=== PATIENT | female | born 1970 ===

== ENCOUNTER 2017-05-23 08:53 | Day surgery (SDC) | payer BC ==
[2017-05-22 09:58] LABS: CHLORIDE,CL 105 mmol/L (98-110); SODIUM,NA 136 mmol/L (136-146)
[~2017-05-23 08:53] MED LIST: Fluorescein 5 ML Vial ONE; Octyl 2-Cyanoacrylate 1 Tube ONE; Sodium Chloride 0.9% 10 ML Syringe FLUSH PRN; Sodium Chloride 0.9% 2.5 ML Syringe FLUSH PRN; ceFAZolin 2 GM in Premix Bag 1 BAG IV ONE
[2017-05-23] MEDS: Lactated Ringers 1,000 ML IV SCH ×3 (09:27→23:37)
[2017-05-23] MEDS ORDERED: Scopolamine 1.5 MG Transdermal Patch TRDERM PRN (10:01)
--- NOTE | 2017-05-23 10:02 | PCM.PREANE ---
Preanesthetic Assessment - Anesthesia/Transfusion/Family Hx Anesthesia History: Prior Anesthesia Without Reaction Family History of Anesthesia Reaction: No Transfusion History: No Prior Transfusion(s) - Review of Systems General: No Symptoms Pulmonary: No Symptoms Cardiovascular: No Symptoms Gastrointestinal: No Symptoms Neurological: No Symptoms Other: Reports: None - Physical Assessment NPO Status Date: 05/22/17 NPO Status Time: 21:00 O2 Sat by Pulse Oximetry: 99 Respiratory Rate: 18 Vital Signs: Last Vital Signs Temp 36.4 C 05/23/17 09:20 Pulse 99 05/23/17 09:20 Resp 18 05/23/17 09:20 BP 139/86 05/23/17 09:20 Pulse Ox 99 05/23/17 09:20 Height: 1.7 m Weight: 107.048 kg ASA Class: 1 Mental Status: Alert & Oriented x3 Dentition: Reports: Normal Dentition ROM/Head Extension: Full Lungs: Clear to Auscultation, Normal Respiratory Effort Cardiovascular: Regular Rate, Regular Rhythm - Lab Values: Laboratory Last Values WBC 8.38 K/uL (4.0-11.0) 05/22/17 09:25 RBC 4.59 M/uL (4.30-5.90) 05/22/17 09:25 Hgb 13.8 g/dL (12.0-16.0) 05/22/17 09:25 Hct 40.9 % (36.0-46.0) 05/22/17 09:25 MCV 89.1 fL (80.0-98.0) 05/22/17 09:25 MCH 30.1 pg (27.0-32.0) 05/22/17 09:25 MCHC 33.7 g/dL (31.0-37.0) 05/22/17 09:25 RDW Std Deviation 44.7 fl (28.0-62.0) 05/22/17 09:25 RDW Coeff of June 14 % (11.0-15.0) 05/22/17 09:25 Plt Count 170 K/uL (150-400) 05/22/17 09:25 MPV 11.80 fL (7.40-12.00) 05/22/17 09:25 Nucleated RBC % 0.0 /100WBC 05/22/17 09:25 Nucleated RBCs # 0 K/uL 05/22/17 09:25 Sodium 136 mmol/L (136-146) 05/22/17 09:25 Potassium 4.4 mmol/L (3.5-5.1) 05/22/17 09:25 Chloride 105 mmol/L (98-110) 05/22/17 09:25 Carbon Dioxide 25 mmol/L (21-31) 05/22/17 09:25 BUN 11 mg/dL (6.0-23.0) 05/22/17 09:25 Creatinine 0.8 mg/dL (0.6-1.5) 05/22/17 09:25 Est Cr Clr Drug Dosing 86.36 mL/min 05/22/17 09:25 Estimated GFR (MDRD) > 60.0 ml/min 05/22/17 09:25 Glucose 115 mg/dL (60-110) H 05/22/17 09:25 Calcium 9.3 mg/dL (8.8-10.8) 05/22/17 09:25 HCG, Qual NEGATIVE (NEG) 05/22/17 09:25 Blood Type A POSITIVE 05/22/17 09:25 Antibody Screen NEGATIVE 05/22/17 09:25 - Allergies Allergies/Adverse Reactions: Allergies Allergy/AdvReac Type Severity Reaction Status Date / Time ciprofloxacin Allergy lips swell Verified 05/20/17 12:47 - Anesthesia Plan Pre-Op Medication Ordered: Other (scop) - Acknowledgements Anesthesia Type Planned: General Anesthesia Pt an Appropriate Candidate for the Planned Anesthesia: Yes Alternatives and Risks of Anesthesia Discussed w Pt/Guardian: Yes Pt/Guardian Understands and Agrees with Anesthesia Plan: Yes PreAnesthesia Questionnaire HEENT History: Reports: Other (See Below) Other HEENT History: wears glasses Genitourinary History: Reports: None RESEARCH DIRECTOR History: Reports: Dysfunctional Uterine Bleeding, Psychiatric History: Reports: Anxiety, Depression Endocrine/Metabolic History: Reports: Obesity/BMI 30+ - Past Surgical History Head Surgeries/Procedures: Reports: None Female Surgical History: Reports: Tubal Ligation Other Female Surgeries/Procedures: endometrial bx - SUBSTANCE USE Smoking Status *Q: Never Smoker Recreational Drug Use History: No - HOME MEDS Home Medications: Home Meds Venlafaxine HCl [Venlafaxine HCl ER] 150 mg PO DAILY 05/20/17 [History] - CURRENT (IN HOUSE) MEDS Current Meds: Current Medications Lactated Ringer's (Ringers, Lactated) 1,000 mls @ 125 mls/hr IV ASDIRECTED [facility] Last Admin: 05/23/17 09:27 Dose: 125 mls/hr Scopolamine (Transderm-Scop) 1.5 mg TRDERM Q72H PRN PRN Reason: Nausea/Vomiting Sodium Chloride (Saline Flush) 10 ml FLUSH ASDIRECTED PRN PRN Reason: Keep Vein Open Sodium Chloride (Saline Flush) 2.5 ml FLUSH ASDIRECTED PRN PRN Reason: Keep Vein Open Discontinued Medications Fluorescein Sodium (Ak-Fluor) Confirm Administered Dose 5 ml .ROUTE .STK-MED ONE Stop: 05/23/17 07:27 Cefazolin Sodium/Dextrose 2 gm (/ Premix) 50 mls @ 100 mls/hr IV ONETIME ONE Stop: 05/22/17 08:56 Octyl Cyanoacrylate (Dermabond Advance) Confirm Administered Dose 1 applic .ROUTE .STK-MED ONE Stop: 05/23/17 07:27
[2017-05-23] MEDS ORDERED: fentaNYL 100 MCG/2 ML SDV ONE ×2 (11:16→13:48)
[2017-05-23] MEDS ORDERED: Lidocaine 2% 5 ML SDV ONE (11:16)
[2017-05-23] MEDS ORDERED: Propofol 200 MG/20 ML SDV ONE (11:16)
[2017-05-23] MEDS ORDERED: Neostigmine Methylsulfate 1 MG/ML 5 ML Syringe ONE (11:17)
[2017-05-23] MEDS ORDERED: Rocuronium 10 MG/ML 10 ML Syringe ONE (11:17)
[2017-05-23] MEDS ORDERED: Ketorolac 30 MG/ML SDV ONE (11:17)
[2017-05-23] MEDS ORDERED: Ondansetron 4 MG/2 ML SDV ONE (11:17)
[2017-05-23] MEDS ORDERED: Midazolam 1 MG/ML 2 ML SDV ONE (11:17)
[2017-05-23] MEDS ORDERED: HYDROmorphone 2 MG/ML Syringe ONE (11:31)
[2017-05-23] MEDS ORDERED: Furosemide 40 MG/4 ML VIAL ONE (13:47)
[2017-05-23] MEDS ORDERED: Labetalol 100 MG/20 ML MDV ONE (13:53)
[2017-05-23] MEDS ORDERED: ePHEDrine 50 MG/ML SDV ONE (14:08)
[2017-05-23] MEDS ORDERED: Ondansetron 4 MG/2 ML SDV IVPUSH PRN (14:17)
[2017-05-23] MEDS ORDERED: Morphine 4 MG/ML Syringe IVPUSH PRN (14:17)
[2017-05-23] MEDS ORDERED: Ketorolac 30 MG/ML SDV IVPUSH PRN (14:17)
[2017-05-23] MEDS ORDERED: Promethazine 25 MG/ML SDV IM PRN (14:17)
[2017-05-23] MEDS ORDERED: Morphine 2 MG/ML Syringe IVPUSH PRN (14:17)
[2017-05-23] MEDS ORDERED: Acetaminophen/oxyCODONE 325-5 MG Tab PO PRN ×2 (14:17)
[2017-05-23] MEDS ORDERED: Ketorolac 30 MG/ML SDV IVPUSH ONE (14:17)
--- NOTE | 2017-05-23 14:21 | PCM.OPNOTE ---
- General Post-Op/Procedure Note Date of Surgery/Procedure: 05/23/17 Operative Procedure(s): TV[facility] Cystoscopy Pre Op Diagnosis: Bleeding Post-Op Diagnosis: Same Anesthesia Technique: General ET Tube Primary Surgeon: Harjinder Richey Structural Iron Erector: Elo Vasquez EBL in mLs: 75 Complications: None Condition: Good Free Text/Narrative:: Intake & Output 05/22/17 05/23/17 05/23/17 22:59 06:59 14:59 Output Total 50 Balance -50
[2017-05-23] MEDS ORDERED: fentaNYL 100 MCG/2 ML SDV IVPUSH PRN (14:36)
[2017-05-23] MEDS ORDERED: HYDROmorphone 2 MG/ML Syringe IVPUSH ONE (14:36)
--- NOTE | 2017-05-23 15:04 | PCM.POSTAN ---
POST ANESTHESIA ASSESSMENT - MENTAL STATUS Mental Status: Alert, Oriented - RESPIRATORY Respiratory Status: Respiratory Rate WNL, Airway Patent, O2 Saturation Stable - CARDIOVASCULAR CV Status: Pulse Rate WNL, Blood Pressure Stable - GASTROINTESTINAL GI Status: No Symptoms - POST OP HYDRATION Hydration Status: Adequate & Stable
--- NOTE | 2017-05-24 02:42 | OR ---
SURGEON: Harjinder Richey MD DATE OF PROCEDURE: PREOPERATIVE DIAGNOSIS: Menometrorrhagia. POSTOPERATIVE DIAGNOSIS: Menometrorrhagia. OPERATION PERFORMED: Total vaginal hysterectomy, vaginal bilateral salpingectomy, preserving both ovary and cystoscopy. TAXI PROPRIETOR: Dr. Elo Vasquez. ANESTHESIA: General endotracheal intubation, Vance Dukes and Dr. Matthews. ESTIMATED BLOOD LOSS: 75 mL. COMPLICATIONS: None. FINDINGS: Uterus about 8 week size. Both ovaries are essentially is normal. INDICATION FOR SURGERY: Seney refer to the admit note. PROCEDURE IN DETAIL: The patient was brought to the OR, properly identified and after adequate level of anesthesia, the patient was placed in lithotomy position, prepped and draped in sterile fashion as usual. A short weighted speculum was placed in the vagina and straight catheter was used to empty the bladder and then single-tooth tenaculum was applied to the cervix and using electrocautery, a circular incision in the vaginal mucosa around the cervix was done. The posterior cul-de- sac was entered with the Ledbetter scissors and the vagina and the posterior vaginal wall was tagged with 2-0 and held for further identification. The short- weighted speculum replaced with an extended long-weighted speculum. Then, the uterosacral ligament identified from both sides, clamped with curved Zeppelin, transected, and suture ligated with 2-0 Vicryl in a Tia fashion and held for further identification. The same thing was done with the cardinal ligament and then the cervicovesical space was entered anteriorly and the bladder retracted completely away from the operative field. The broad ligament was clamped with a curved Zeppelin, transected, and suture ligated with 2-0 Vicryl pop-off. The uterine vessel suture ligated at this step. The round ligament on both sides top of the curved Zeppelin, transected, and suture ligated with 2-0 Vicryl pop- off. The uterus was delivered posteriorly and 90-degree Zeppelin was applied to the superior pedicle on both sides and the uterus was removed. The superior pedicle tied twice with a free tie on both sides and held for further identification. Attention was paid to the tubes and 90-degree clamp was applied to the mesosalpinx on both sides and the tubes removed and the mesosalpinx was tied with a free tie of 3-0 Vicryl. Inspection of the operative field shows no oozing, no bleeding. The uterosacral ligament and cardinal ligament anchored to the vagina at 3 and 9 o'clock for added vaginal support and the vaginal cuff was closed with 2-0 Vicryl interrupted [id number] suture. While we were doing that, we asked the anesthesiologist to give the patient fluorescein and after closing the vagina, cystoscopy was performed. The bladder was intact. Both ureteric orifices were seen with the dye coming from both of them. The patency of both ureters verified, satisfied with these finding. The procedure was ended. Instrument and sponge count was correct x2. The patient tolerated the procedure well, went to recovery room in stable general condition. JOSE LUIS / LAMINE /[id number]
[2017-05-24 05:54] LABS: CHLORIDE,CL 100 mmol/L (98-110); SODIUM,NA 132 mmol/L (136-146)
--- NOTE | 2017-05-24 09:44 | PCM.SURGPN ---
- General Info Date of Service: 05/24/17 Functional Status: Reports: Pain Controlled - Review of Systems General: Reports: No Symptoms HEENT: Reports: No Symptoms Pulmonary: Reports: No Symptoms Cardiovascular: Reports: No Symptoms Gastrointestinal: Reports: No Symptoms Genitourinary: Reports: No Symptoms Musculoskeletal: Reports: No Symptoms Skin: Reports: No Symptoms Neurological: Reports: No Symptoms Psychiatric: Reports: No Symptoms - Patient Data Vitals - Most Recent: Last Vital Signs Temp 36.7 C 05/24/17 08:38 Pulse 74 05/24/17 08:38 Resp 22 H 05/24/17 08:38 BP 143/77 H 05/24/17 08:38 Pulse Ox 98 05/24/17 08:38 Weight - Most Recent: 107.048 kg I&O - Last 24 Hours: Intake & Output 05/23/17 05/24/17 05/24/17 22:59 06:59 14:59 Intake Total 1800 2404 Output Total 375 2000 Balance 1425 404 Lab Results Last 24 Hrs: Laboratory Results - last 24 hr 05/24/17 05/24/17 Range/Units 04:54 04:54 WBC 19.23 H (4.0-11.0) K/uL RBC 4.14 L (4.30-5.90) M/uL Hgb 12.5 (12.0-16.0) g/dL Hct 36.6 (36.0-46.0) % MCV 88.4 (80.0-98.0) fL MCH 30.2 (27.0-32.0) pg MCHC 34.2 (31.0-37.0) g/dL RDW Std Deviation 43.2 (28.0-62.0) fl RDW Coeff of June 13 (11.0-15.0) % Plt Count 155 (150-400) K/uL MPV 12.00 (7.40-12.00) fL Neut % (Auto) 88.2 H (48.0-80.0) % Lymph % (Auto) 6.4 L (16.0-40.0) % [place] % (Auto) 5.4 (0.0-15.0) % Eos % (Auto) 0.0 (0.0-7.0) % Baso % (Auto) 0.0 (0.0-1.5) % Neut # (Auto) 17.0 H (1.4-5.7) K/uL Lymph # (Auto) 1.2 (0.6-2.4) K/uL [place] # (Auto) 1.0 H (0.0-0.8) K/uL Eos # (Auto) 0.0 (0.0-0.7) K/uL Baso # (Auto) 0.0 (0.0-0.1) K/uL Nucleated RBC % 0.0 /100WBC Nucleated RBCs # 0 K/uL Sodium 132 L (136-146) mmol/L Potassium 3.8 (3.5-5.1) mmol/L Chloride 100 (98-110) mmol/L Carbon Dioxide 23 (21-31) mmol/L BUN 7 (6.0-23.0) mg/dL Creatinine 0.7 (0.6-1.5) mg/dL Est Cr Clr Drug Dosing 98.69 mL/min Estimated GFR (MDRD) > 60.0 ml/min Glucose 129 H (60-110) mg/dL Calcium 8.5 L (8.8-10.8) mg/dL Med Orders - Current: Current Medications Fentanyl (Sublimaze) 50 mcg IVPUSH Q5M PRN PRN Reason: Pain (severe 7-10) Stop: 05/24/17 14:36 Lactated Ringer's (Ringers, Lactated) 1,000 mls @ 125 mls/hr IV ASDIRECTED [facility] Last Admin: 05/23/17 23:37 Dose: 125 mls/hr Ketorolac Tromethamine (Toradol) 30 mg IVPUSH Q6H PRN PRN Reason: Pain (severe 7-10) Stop: 05/28/17 14:17 Last Admin: 05/23/17 20:23 Dose: 30 mg Morphine Sulfate (Morphine) 2 mg IVPUSH Q2H PRN PRN Reason: Pain (severe 7-10) Last Admin: 05/23/17 18:33 Dose: 2 mg Morphine Sulfate (Morphine) 4 mg IVPUSH Q2H PRN PRN Reason: Pain (severe 7-10) Ondansetron HCl (Zofran) 4 mg IVPUSH Q6H PRN PRN Reason: Nausea/Vomiting Last Admin: 05/23/17 17:15 Dose: 4 mg Oxycodone/Acetaminophen (Percocet 325-5 Mg) 1 tab PO Q4H PRN PRN Reason: Pain (moderate 4-6) Last Admin: 05/23/17 17:15 Dose: 1 tab Oxycodone/Acetaminophen (Percocet 325-5 Mg) 2 tab PO Q4H PRN PRN Reason: Pain (moderate 4-6) Promethazine HCl (Phenergan) 25 mg IM Q6H PRN PRN Reason: Nausea/Vomiting Last Admin: 05/23/17 18:01 Dose: 25 mg Scopolamine (Transderm-Scop) 1.5 mg TRDERM Q72H PRN PRN Reason: Nausea/Vomiting Last Admin: 05/23/17 10:09 Dose: 1.5 mg Sodium Chloride (Saline Flush) 10 ml FLUSH ASDIRECTED PRN PRN Reason: Keep Vein Open Sodium Chloride (Saline Flush) 2.5 ml FLUSH ASDIRECTED PRN PRN Reason: Keep Vein Open Discontinued Medications Ephedrine Sulfate (Ephedrine Sulfate) Confirm Administered Dose 50 mg .ROUTE .STK-MED ONE Stop: 05/23/17 14:09 Fentanyl (Sublimaze) Confirm Administered Dose 300 mcg .ROUTE .STK-MED ONE Stop: 05/23/17 11:17 Fentanyl (Sublimaze) Confirm Administered Dose 100 mcg .ROUTE .STK-MED ONE Stop: 05/23/17 13:49 Fluorescein Sodium (Ak-Fluor) Confirm Administered Dose 5 ml .ROUTE .STK-MED ONE Stop: 05/23/17 07:27 Furosemide (Lasix) Confirm Administered Dose 40 mg .ROUTE .STK-MED ONE Stop: 05/23/17 13:48 Glycopyrrolate () Confirm Administered Dose 1 mg .ROUTE .STK-MED ONE Stop: 05/23/17 11:18 Hydromorphone HCl (Dilaudid) Confirm Administered Dose 2 mg .ROUTE .STK-MED ONE Stop: 05/23/17 11:32 Hydromorphone HCl (Dilaudid) 0 mg IVPUSH ONETIME ONE Stop: 05/23/17 14:37 Last Admin: 05/23/17 15:31 Dose: Not Given Cefazolin Sodium/Dextrose 2 gm (/ Premix) 50 mls @ 100 mls/hr IV ONETIME ONE Stop: 05/22/17 08:56 Last Admin: 05/23/17 15:30 Dose: Not Given Ketorolac Tromethamine (Toradol) Confirm Administered Dose 30 mg .ROUTE .STK- MED ONE Stop: 05/23/17 11:18 Ketorolac Tromethamine (Toradol) 30 mg IVPUSH ONETIME ONE Stop: 05/23/17 14:18 Last Admin: 05/23/17 15:31 Dose: Not Given Labetalol HCl (Normodyne) Confirm Administered Dose 100 mg .ROUTE .STK-MED ONE Stop: 05/23/17 13:54 Lidocaine (Xylocaine-Mpf 2%) Confirm Administered Dose 10 ml .ROUTE .STK-MED ONE Stop: 05/23/17 11:17 Midazolam HCl (Versed 1 Mg/Ml) Confirm Administered Dose 2 mg .ROUTE .STK-MED ONE Stop: 05/23/17 11:18 Neostigmine Methylsulfate (Neostigmine) Confirm Administered Dose 5 mg .ROUTE .STK-MED ONE Stop: 05/23/17 11:18 Octyl Cyanoacrylate (Dermabond Advance) Confirm Administered Dose 1 applic .ROUTE .STK-MED ONE Stop: 05/23/17 07:27 Ondansetron HCl (Zofran) Confirm Administered Dose 8 mg .ROUTE .STK-MED ONE Stop: 05/23/17 11:18 Propofol (Diprivan 20 Ml) Confirm Administered Dose 400 mg .ROUTE .STK-MED ONE Stop: 05/23/17 11:17 Rocuronium [place] (Zemuron) Confirm Administered Dose 100 mg .ROUTE .STK-MED ONE Stop: 05/23/17 11:18 - Exam Wound/Incisions: Healing Well General: Alert, Oriented HEENT: Pupils Equal Neck: Supple Lungs: Clear to Auscultation, Normal Respiratory Effort Cardiovascular: Regular Rate, Regular Rhythm GI/Abdominal Exam: Normal Bowel Sounds, Soft, Non-Tender, No Organomegaly, No Distention, No Abnormal Bruit, No Mass, Pelvis Stable Extremities: Normal Inspection, Normal Range of Motion, Non-Tender, No Pedal Edema, Normal Capillary Refill Skin: Warm, Dry, Intact Neurological: No New Focal Deficit Psy/Mental Status: Alert, Normal Affect, Normal Mood - Problem List Review Problem List Initiated/Reviewed/Updated: Yes - My Orders Last 24 Hours: Active Orders 24 hr Category Date Time Status Patient Status [ADT] Routine ADT 05/23/17 14:17 Active Antiembolic Devices [RC] PER UNIT ROUTINE Care 05/23/17 14:18 Active Notify Provider Vital Signs [RC] ASDIRECTED Care 05/23/17 14:17 Active Oxygen Therapy [RC] ASDIRECTED Care 05/23/17 14:17 Active RT Incentive Spirometry [RC] Q2HWA Care 05/23/17 14:17 Active Up With Assistance [RC] PER UNIT ROUTINE Care 05/23/17 14:17 Active Up ad Yue [RC] PER UNIT ROUTINE Care 05/23/17 14:17 Active Regular Diet [DIET] Diet 05/23/17 Dinner Active Acetaminophen/oxyCODONE [Percocet 325-5 MG] Med 05/23/17 14:17 Active 1 tab PO Q4H PRN Acetaminophen/oxyCODONE [Percocet 325-5 MG] Med 05/23/17 14:17 Active 2 tab PO Q4H PRN Ketorolac [Toradol] Med 05/23/17 14:17 Active 30 mg IVPUSH Q6H PRN Morphine Med 05/23/17 14:17 Active 2 mg IVPUSH Q2H PRN Morphine Med 05/23/17 14:17 Active 4 mg IVPUSH Q2H PRN Ondansetron [Zofran] Med 05/23/17 14:17 Active 4 mg IVPUSH Q6H PRN Promethazine [Phenergan] Med 05/23/17 14:17 Active 25 mg IM Q6H PRN Scopolamine [Transderm-Scop] Med 05/23/17 10:01 Active 1.5 mg TRDERM Q72H PRN fentaNYL [Sublimaze] Med 05/23/17 14:36 Active 50 mcg IVPUSH Q5M PRN Peripheral IV Discontinue [OM.PC] Routine Oth 05/23/17 14:17 Ordered Sequential Compression Device [OM.PC] Per Unit Routine Oth 05/23/17 14:17 Ordered Resuscitation Status Routine Resus Stat 05/23/17 14:17 Ordered Medication Orders Fentanyl (Sublimaze) 50 mcg IVPUSH Q5M PRN PRN Reason: Pain (severe 7-10) Stop: 05/24/17 14:36 Lactated Ringer's (Ringers, Lactated) 1,000 mls @ 125 mls/hr IV ASDIRECTED [facility] Last Admin: 05/23/17 23:37 Dose: 125 mls/hr Infusion: 05/23/17 23:37 Dose: 125 mls/hr Admin: 05/23/17 15:41 Dose: 125 mls/hr Infusion: 05/23/17 15:41 Dose: 125 mls/hr Admin: 05/23/17 09:27 Dose: 125 mls/hr Ketorolac Tromethamine (Toradol) 30 mg IVPUSH Q6H PRN PRN Reason: Pain (severe 7-10) Stop: 05/28/17 14:17 Last Admin: 05/23/17 20:23 Dose: 30 mg Morphine Sulfate (Morphine) 2 mg IVPUSH Q2H PRN PRN Reason: Pain (severe 7-10) Last Admin: 05/23/17 18:33 Dose: 2 mg Morphine Sulfate (Morphine) 4 mg IVPUSH Q2H PRN PRN Reason: Pain (severe 7-10) Ondansetron HCl (Zofran) 4 mg IVPUSH Q6H PRN PRN Reason: Nausea/Vomiting Last Admin: 05/23/17 17:15 Dose: 4 mg Oxycodone/Acetaminophen (Percocet 325-5 Mg) 1 tab PO Q4H PRN PRN Reason: Pain (moderate 4-6) Last Admin: 05/23/17 17:15 Dose: 1 tab Oxycodone/Acetaminophen (Percocet 325-5 Mg) 2 tab PO Q4H PRN PRN Reason: Pain (moderate 4-6) Promethazine HCl (Phenergan) 25 mg IM Q6H PRN PRN Reason: Nausea/Vomiting Last Admin: 05/23/17 18:01 Dose: 25 mg Scopolamine (Transderm-Scop) 1.5 mg TRDERM Q72H PRN PRN Reason: Nausea/Vomiting Last Admin: 05/23/17 10:09 Dose: 1.5 mg Sodium Chloride (Saline Flush) 10 ml FLUSH ASDIRECTED PRN PRN Reason: Keep Vein Open Sodium Chloride (Saline Flush) 2.5 ml FLUSH ASDIRECTED PRN PRN Reason: Keep Vein Open - Assessment Assessment (Free Text/Narrative):: Status post total vaginal hysterectomy postoperative day #1 the patient is doing okay on regular diet no vaginal bleeding or vital signs stable and have lab work is within normal limit - Plan Plan (Free Text/Narrative):: The postvasectomy instruction is given the patient the patient is given a prescription for Percocet 7.5/325 for pain and she is to come to the office in 1 week for postoperative checkup
--- NOTE | 2017-05-24 12:40 | PCM48HPAN ---
Post Anesthesia Note - EVALUATION WITHIN 48HRS OF ANESTHETIC Vital Signs in Normal Range: Yes Patient Participated in Evaluation: Yes Respiratory Function Stable: Yes Airway Patent: Yes Cardiovascular Function Stable: Yes Hydration Status Stable: Yes Pain Control Satisfactory: Yes Nausea and Vomiting Control Satisfactory: Yes Mental Status Recovered: Yes
== END 2017-05-24 10:37 | disposition home or self-care (01) ==
LOC: MW.SDS 08:53 → MW.MS 14:17 → MW.SDS 05-24 10:37
PROVIDERS: ATTEND Obstetrics & Gynecology
DX: N80.0 Endometriosis of uterus (principal); F41.9 Anxiety disorder, unspecified; F32.9 Major depressive disorder, single episode, unspecified; E66.9 Obesity, unspecified; Z88.1 Allergy status to other antibiotic agents; Z79.899 Other long term (current) drug therapy; Z98.890 Other specified postprocedural states; Z98.51 Tubal ligation status; Z68.36 Body mass index [BMI] 36.0-36.9, adult
CPT/HCPCS: 36415; 58262; 80048; 84703; 85025; 85027; 86850; 86900; 86901; A9270; J1170; J1885; J1940; J2250; J2270; J2405; J2550; J3010; J7120; 00940; 88307; J2704

== ENCOUNTER 2023-04-28 18:15 | Emergency (ER) | payer BC ==
[2023-04-28] MEDS ORDERED: Lidocaine 4% 1 each Patch TOP PRN (19:58)
[2023-04-28] MEDS ORDERED: Ketorolac 30 MG/ML SDV IM ONE (19:58)
[2023-04-28] MEDS ORDERED: Orphenadrine 60 MG/2 ML Inj IM ONE (19:58)
[2023-04-28] MEDS ORDERED: methylPREDNISolone Sodium Succinate 125 MG/2 ML SDV IM ONE (21:25)
[2023-04-28] MEDS ORDERED: HYDROmorphone 1 MG/ML Syringe IM ONE (21:25)
== END 2023-04-28 22:44 | disposition home or self-care (01) ==
LOC: MW.ED 18:15
DX: M54.41 Lumbago with sciatica, right side (principal); E66.9 Obesity, unspecified; Z88.1 Allergy status to other antibiotic agents; Z68.37 Body mass index [BMI] 37.0-37.9, adult
CPT/HCPCS: 72131; 96372; 99283; A9270; J1170; J1885; J2360; J2930

== ENCOUNTER 2023-04-30 09:55 | Emergency (ER) | payer BC ==
[2023-04-30] MEDS ORDERED: HYDROmorphone 1 MG/ML Syringe IM ONE (10:18)
== END 2023-04-30 13:37 | disposition home or self-care (01) ==
LOC: MW.ED 09:55
DX: M51.26 Other intervertebral disc displacement, lumbar region (principal); E66.9 Obesity, unspecified; Z68.36 Body mass index [BMI] 36.0-36.9, adult; Z88.1 Allergy status to other antibiotic agents
CPT/HCPCS: 72148; 96372; 99283; J1170

== ENCOUNTER 2023-05-01 09:36 | Emergency (ER) | payer BC ==
[2023-05-01] MEDS ORDERED: Naloxone 0.4 MG/ML SDV IVPUSH PRN (10:26)
[2023-05-01] MEDS ORDERED: HYDROmorphone 1 MG/ML Syringe IM ONE (10:26)
[2023-05-01] MEDS ORDERED: Ondansetron 4 MG Tab.DIS PO STA (10:30)
== END 2023-05-01 11:01 ==
LOC: MW.ED 09:36
DX: M54.41 Lumbago with sciatica, right side (principal); E66.9 Obesity, unspecified; Z68.36 Body mass index [BMI] 36.0-36.9, adult; Z88.1 Allergy status to other antibiotic agents
CPT/HCPCS: 96372; 99284; A9270; J1170; 99283